=== PATIENT | female | born 1995 | race Caucasian/White ===

== ENCOUNTER 2019-05-25 08:16 | Emergency (ER) | payer OTHER, SELFPAY ==
[2019-05-25 08:27] VITALS: BP 146/90; PULSE 76; RESP 16; TEMP 37.1; O2SAT 99; BMI 29.7
--- NOTE | 2019-05-25 08:27 | ED.URI ---
HPI - URI/Sore Throat General Chief Complaint: Upper Respiratory Symptoms Stated Complaint: sore throat/drainage x3 days Time Seen by Provider: 05/25/19 08:21 Source: patient Mode of arrival: Ambulatory Limitations: no limitations History of Present Illness HPI Narrative: This is a 23-year-old female comes to the emergency department with complaint of sore throat. Patient states she has had about 2 days of symptoms. This morning she woke up and was a lot more sore she felt like her tonsils were swollen. She has had some nasal congestion, she has had a cough, she has had some nasal drainage. Patient has not had any fevers. She has sore throat but is able to swallow. She has a little bit hoarse but not muffled. She denies any ear pain. She denies any difficulty with breathing. Denies any chest pain or shortness of breath no nausea, no vomiting no other GI or urinary symptoms. She does have a 3-month-old at home. She is not breast-feeding. She is otherwise healthy. Denies any prior surgeries. Denies any current allergies to medications. No tobacco, occasional alcohol no illicit. Related Data Home Medications Medication Instructions Recorded Confirmed No Known Home Medications 05/25/19 05/25/19 Allergies Allergy/AdvReac Type Severity Reaction Status Date / Time No Known Drug Allergies Allergy Verified 05/25/19 08:31 Review of Systems Review of Systems ROS Unobtainable: All systems reviewed & are unremarkable except as noted in HPI and below Constitutional Constitutional: Denies chills, Denies fever(s), Denies headache(s), Denies lethargy and Denies weakness ENT Ears, Nose, Mouth, and Throat: Reports as per HPI, Reports change in voice (hoarse), Denies otalgia, Denies facial pain, Denies headache(s), Reports hoarseness, Denies lip swelling, Reports nasal congestion, Reports nasal discharge, Denies neck pain, Reports post nasal drip, Denies sinus pain, Reports sore throat, Reports throat swelling and Denies tongue swelling Cardiovascular Cardiovascular: Denies chest pain, Denies dyspnea and Denies dyspnea on exertion Respiratory Respiratory: Reports change in phlegm color (yellow), Reports cough, Denies dyspnea, Denies dyspnea on exertion, Denies stridor and Denies wheezing Gastrointestinal Gastrointestinal: Denies abdominal pain, Denies change in bowel habits, Denies diarrhea, Denies nausea and Denies vomiting Musculoskeletal Musculoskeletal: Denies neck pain Integumentary/Breasts Skin/Breast: Denies rash Neurologic Neurologic: Denies headache(s) and Denies weakness Allergic/Immunologic Allergic/Immunologic: Denies lip swelling, Reports throat swelling, Denies tongue swelling and Denies wheezing PFSH Social History Smoking Status: Never smoker Social History (Updated 05/25/19 @ 09:00 by Kaye Rea DO) Smoking Status: Never smoker alcohol intake: current substance use type: does not use Exam Narrative Exam Narrative: GEN: well nourished, well appearing female, alert and oriented x 3, patient appears to be in mild distress. HEENT: Atraumatic, pupils are equal round reactive to light, extraocular movements are intact, nares are clear, TMs are clear with no fluid. Throat is without any exudates, positive for erythema, bilateral tonsillar enlargement, no uvular deviation, patient has mild cervical lymphadenopathy and submandibular lymphadenopathy. Patient is mildly hoarse, no muffled voice, no stridor try potting. Patient is able to handle her secretions without issue. HEART: Regular rate and rhythm without murmur, clicks, rubs. LUNGS:Lungs clear to auscultation, no wheezes, rales, crackles, chest moves symmetrically ABD:bowel sounds normal, soft, non-tender, no guarding, rebound, rigidity, no masses noted, no hepatosplenomegaly MSCL: full range of motion, normal gait NEURO:CN 2-12 intact, sensation normal SKIN: no rash, no petechiae. Initial Vital Signs Initial Vital Signs: Vital Signs Temperature 98.7 F 05/25/19 08:27 Pulse Rate 76 05/25/19 08:27 Respiratory Rate 16 05/25/19 08:27 Blood Pressure 146/90 H 05/25/19 08:27 Pulse Oximetry 99 05/25/19 08:27 Course Orders Ordered: Discontinued Medications Dexamethasone (Decadron) 10 mg PO NOW ONE Stop: 05/25/19 08:28 Last Admin: 05/25/19 08:49 Dose: 10 mg Documented by: ALEXANDREA Vital Signs Vital signs: Vital Signs - 8 hr 05/25/19 08:27 Temperature 98.7 F Pulse Rate 76 Respiratory Rate 16 Blood Pressure 146/90 H Pulse Oximetry 99 MDM - URI/Sore Throat Lab Data Attestation: I reviewed the patient's lab results. Labs: Point of Care Testing Rapid Strep A Negative [facility] Narrative Medical decision making narrative: Patient does not meet sent door criteria for antibiotics. Rapid strep is negative. Patient given a dose of Decadron for symptom relief and recommendations. Discharge Plan Departure Patient Disposition: Home Clinical Impression: Pharyngitis Instructions: DI for Pharyngitis/Tonsillopharyngitis -- Adult Activity Restrictions/Additional Instructions: Follow-up with primary care in the next 7-10 days if symptoms have not resolved. You may take ibuprofen up to 800 mg every 8 hours and/or Tylenol up to a 1000 mg every 8 hours as needed for pain. I would recommend gargling with warm salt water as needed for symptoms. Return to the emergency department for fevers greater than 100.4 F that do not respond to Tylenol ibuprofen, worsening swelling, inability to swallow her saliva, secretions are fluids, muffled voice swelling of the lips, tongue, swelling of the face, neck or other new or concerning symptoms. Prescriptions: No Action No Known Home Medications RF: 0 Stand Alone Forms: Work Release Note
[2019-05-25] MEDS: DEXAMETHASONE 10 MG/ML VIAL PO (08:49)
[2019-05-25 09:29] VITALS: BP 118/85; PULSE 72; RESP 16; TEMP 36.8; O2SAT 99
== END 2019-05-25 09:29 | disposition home or self-care (01) ==
PROVIDERS: Emergency Provider Emergency Medicine
DX: J02.9 Acute pharyngitis, unspecified (principal)
CPT/HCPCS: 87880; 99282; 99283; J1100